=== PATIENT | male | born 1955 | race Caucasian/White ===

== ENCOUNTER 2018-04-07 23:02 | Inpatient (IN) ==
[2018-04-08] MEDS ORDERED: Naloxone 0.4 MG/ML INJ IVP PRN (03:19)
--- NOTE | 2018-04-08 03:43 | Internal Med History&Physical ---
Date of Encounter: 04/08/18 Time of Encounter: 02:50 Internal Medicine - H&P: HPI Chief complaint: unresonsive Admitted From: Hospital to Hospital Transfer Plans for Post Hospital Care: Transfer Long Term Facility History of present illness: Mr. Armenta is a 62 year old male who presents in transfer from [facility] ER. He presented there earlier this evening with complaints of unresponsiveness and aphasia. He also had some right-sided paralysis, which is all new and acute. A stroke alert was called and they performed a video conference with [facility]. Given that he has stage IV pancreatic cancer and that he was started on therapeutic dose of Lovenox for Portal Vein thrombosis, he was deemed NOT a candidate for thrombolytics. He was therefore transferred to [facility] for ongoing workup and care. Upon my assessment of the patient, he is somnolent but easily arousable. He is completely aphasic and unable to speak. He has right-sided focal paralysis of his arm and leg. He does follow commands and is able to move his left side of his body. Tongue deviates to the right. He also has a slight right-sided facial droop. I am unable to obtain history from him whatsoever. I reviewed his old records from [facility] and past oncology notes. Unfortunately, there are no family members present, and it was reported to me that his will be present later this morning. Upon review of the records from [facility] and transfer records, there is a DNR order form signed by both the ER physician and his stating patient is DNR CC. Furthermore, he just met with his hospice nurse yesterday and was being enrolled in hospice. According to limited records I could find, he has stopped going through cancer treatment due to his lack of improvement and progression of his disease. He has a history of a portal vein thrombosis and remains on therapeutic Lovenox. Despite being on Lovenox, it appears he developed an acute stroke. His troponin is elevated, but there was no reported chest pain. He did receive rectal aspirin at [facility]. Past Med Surg Social Fam HX - Past Medical History Attestation: Yes The following information was validated with the patient. Source: old records reviewed, other (Transfer records) Medical history: cancer (stage 4 pancreatic cancer), other (portal vein thrombosis) Psychiatric history: no psych history - Past Surgical History Surgical History: other - Social History Smoking Status: Former smoker Smokeless Tobacco Status: No Alcohol use: none, occasionally Drug use: none Current living situation: Home, With Family - Family History Mother History Unknown: Yes Father History Unknown: Yes Internal Medicine - H&P: Meds Ascorbic Acid [Vitamin C] 1 tab PO DAILY #30 tablet 02/25/18 [Rx] Ferrous Sulfate [Iron] 1 tab PO DAILY #30 tablet 02/25/18 [Rx] Ondansetron HCl [Zofran] 4 mg PO Q4H PRN #30 tablet 02/25/18 [Rx] Prochlorperazine Maleate [Compazine] 10 mg PO Q6H PRN #30 tablet 02/25/18 [Rx] OxyCODONE Immed Rel [Roxicodone 10 MG] 10 mg PO HS 30 Days #30 tab 03/14/18 [Rx] Docusate Sodium [Colace] 1 tab PO BID #60 capsule 03/28/18 [Rx] Morphine Sulfate SR (12 HR) [MS Contin] 1 tab PO BID 30 Days #60 tab 03/28/18 [ Rx] Polyethylene Glycol 3350 [MiraLAX] 17 gm PO BID #60 powd.pack 03/28/18 [Rx] Enoxaparin [Lovenox] 100 mg SQ Q12HR 04/07/18 [History] 3 Allergy/AdvReac Type Severity Reaction Status Date / Time cephalexin Allergy Hives Verified 04/07/18 20:14 ROS unobtainable: other (aphasia; somnolence) - Constitutional Vitals: Temp Pulse Resp BP Pulse Ox 96.8 F L 66 16 110/69 98 04/08/18 03:15 04/08/18 03:15 04/08/18 03:15 04/08/18 03:15 04/08/18 03:15 General appearance: Present: cooperative, no acute distress Exam: somnolent; arousable; follows commands; right tongue deviation and facial droop ; aphasic - Head Head exam: Present: atraumatic, normal inspection - Eye Eye exam: Present: EOMI, PERRL. Absent: scleral icterus Pupils: Present: normal accommodation - ENT ENT exam: Present: mucous membranes dry - Neck Neck exam general surgery: Present: full ROM, supple. Absent: tenderness, nuchal rigidity, thyromegaly - Respiratory Respiratory exam: Present: CTAB. Absent: chest wall tenderness, rales, respiratory distress, rhonchi, wheezes - Cardiovascular Cardiovascular exam: Present: RRR, +S1, +S2. Absent: diastolic murmur, systolic murmur - GI/Abdominal GI/Abdominal exam: Present: normal bowel sounds, soft. Absent: guarding, hepatomegaly, rebound, splenomegaly, tenderness - Extremities Exam Extremities exam: Present: full ROM, normal capillary refill, warm, radial pulses palpable and symmetrical. Absent: calf tenderness, joint swelling, pedal edema, tenderness - Back Exam Back exam: Absent: CVA tenderness (L), CVA tenderness (R) - Neurological Exam Neurological exam: Present: altered, motor sensory deficit (RUE and RLE paralysis), facial droop, speech deficit. Absent: CN II-XII intact (bryant deviates ot right and subtle right sided facial droop; aphasia) - Psychiatric Additional comments: somnolent, but arousable - Skin Skin exam: Present: dry, warm. Absent: rash Internal Med - H&P Results - Labs Labs: I reviewed the labs from [facility] and include the following: WBC 14.5 Hemoglobin 11.8 Hematocrit 36.2 Platelets 182 PT 16.9 INR 1.6 PTT 40 Sodium 131 Potassium 3.5 Chloride 97 Carbon dioxide 25 BUN 13 Creatinine 0.80 Glucose 129 Troponin 1.16 - EKG Data -: EKG Interpreted by Myself EKG shows normal: sinus rhythm - EKG Data Prior EKG available for review: no EKG comments: 04/08/18 03:50 NSR; old inferior AL - Diagnostic Studies Chest x-ray Status: image reviewed by me (negative) CT scan - head Status: image reviewed by me (negatve) - VTE Reasons for not Prescribing Prophylaxis: Not indicated-Anticoagulated or INR therapeutic - Assessment and plan (1) Stroke Current Visit: Yes Status: Acute Assessment and plan: 1. Will proceed with MRI brain, ECHO and Carotid Dopplers. 2. NPO until speech can assess patient. 3. Rectal ASA daily. 4. Continue Lovenox. 5. Pending palliative care consult and meeting with family, consider PT/OT consults and rehab referral vs Hospice care. Given his disease progression and lack of improvement, palliative care may be only option. Qualifiers: CVA mechanism: unspecified Qualified Code(s): I63.9 - Cerebral infarction, unspecified (2) Portal vein thrombosis Current Visit: Yes Status: Chronic Assessment and plan: 1. Continue Lovenox at 1mg/kg/dose. (3) Pancreatic cancer Current Visit: Yes Status: Chronic Assessment and plan: 1. Consult oncology for guidance regarding his treatments, disease state, and options -- if any aailable. 2. Conslt Palliative Care to assist with goals of care after HEM/ONC gives recommendations. 3. Patient may benefit from Hospice. Qualifiers: Pancreatic malignancy location: body of pancreas Qualified Code(s): C25.1 - Malignant neoplasm of body of pancreas (4) DVT prophylaxis Current Visit: Yes Status: Acute Assessment and plan: 1. Continue home Lovvenox at 1mg/kg/dose.
[2018-04-08] MEDS ORDERED: *HR* Morphine 2 MG/ML SYRINGE IVP PRN (03:59)
[2018-04-08] MEDS: 0.9 % Sodium Chloride w KCl 20 MEQ/1,000 ML MLS IVC SCH ×2 (04:32→21:24)
[2018-04-08 05:17] LABS: Basophils # 0.1 K/mcL (0.0-0.2); Basophils % 0.5 %; Eosinophils # 0.4 K/mcL (0.0-0.6); Eosinophils % 3.7 %; Hemoglobin 10.6 g/dL (12.9-16.9); Immature Granulocytes % 0.9 % (0-4); Lymphocytes % 18.2 %; Mean Corpuscular HGB Conc 32.1 g/dL (31.6-35.5); Mean Corpuscular Hemoglobin 25.7 pg (28.0-33.3); Mean Corpuscular Volume 79.9 fL (83.0-100.0); Mean Platelet Volume 10.5 fL (9.4-12.4); Monocytes # 1.3 K/mcL (0.0-1.3); Monocytes % 11.3 %; Neutrophils # 7.3 K/mcL (1.6-8.9); Platelet Count 152 K/mcL (140-400); Red Blood Count 4.13 M/mcL (4.19-5.50); Red Cell Distribution Width 17.9 % (11.5-14.5); Segmented Neutrophils % 65.4 %
[2018-04-08 05:22] LABS: INR 1.6; Prothrombin Time 17.6 Seconds (9.4-12.1)
[2018-04-08 05:25] LABS: Activated Partial Thrombo Time 47.3 Seconds (26.0-36.0)
[2018-04-08 05:36] LABS: Alanine Aminotransferase 21 Units/L (7-52); Albumin 3.3 g/dL (3.5-5.7); Albumin/Globulin Ratio 1.1 (1.1-2.2); Alkaline Phosphatase 337 Units/L (34-104); Aspartate Amino Transferase 32 Units/L (13-39); BUN/Creatinine Ratio 18 (6-26); Bilirubin,Total 1.2 mg/dL (0.3-1.0); Blood Urea Nitrogen 13 mg/dL (8-23); Calcium 8.6 mg/dL (8.6-10.3); Carbon Dioxide 25 mEq/L (23-29); Chloride 100 mEq/L (98-107); Chol/HDL Ratio 10.5 (0-4.9); Cholesterol 137 mg/dL (< 200); Globulin 2.9 g/dL (2.4-3.5); Glucose 116 mg/dL (70-105); HDL Cholesterol 13 mg/dL (40-59); LDL Cholesterol,Calculated 94 mg/dL (0-99); Magnesium 2.2 mg/dL (1.6-2.6); Osmolality,Calculated 277 (280-300); Potassium 3.9 mEq/L (3.5-5.1); Sodium 133 mEq/L (136-145); Total Protein 6.2 g/dL (6.4-8.9); Triglycerides 150 mg/dL (< 150); eGFR For African Americans > 60 (> 60); eGFR For Non-African Americans > 60 (> 60)
[2018-04-08] MEDS ORDERED: *HR* Enoxaparin 100 MG/ML SYRINGE SQ SCH (06:00)
--- NOTE | 2018-04-08 10:30 | Palliative - Consult Note ---
Date of Encounter: 04/08/18 Time of Encounter: 09:50 - Assessment and Plan (1) Goals of care, counseling/discussion Current Visit: Yes Status: Acute Assessment and plan: he is DNR comfort care. I think given his overall edition this is appropriate, but the patient has stage IV pancreatic cancer. Also care family is not present. Patient is not responsive to verbal. Therefore unable to establish goals of care at this time. However believe that this stroke is probably directly related to the hospice diagnosis of pancreatic cancer. She did rescind hospice before coming to the hospital but hospice is available to him if no further therapy is desired. If the patient does desire to have any kind of rehabilitation hospice would be available after the rehabilitation. (2) Pancreatic cancer Current Visit: Yes Status: Chronic Assessment and plan: Stage IV and the patient has decided against any further treatment. Patient was being admitted to hospice with this diagnosis. Of note, the patient did rescind hospice but He will be eligible for hospice after the workup of the stroke is complete. Qualifiers: Pancreatic malignancy location: body of pancreas Qualified Code(s): C25.1 - Malignant neoplasm of body of pancreas (3) Stroke Current Visit: No Status: Acute Assessment and plan: CVA affecting left side ahead with right-sided hemiparesis by history. I believe that the patient's stroke is probably directly related to his diagnosis of pancreatic cancer. Will follow and await the end of the workup. Hopefully meet with family. Qualifiers: CVA mechanism: embolism Precerebral and cerebral artery: unspecified precerebral artery Qualified Code(s): I63.10 - Cerebral infarction due to embolism of unspecified precerebral artery Palliative-CN HPI - Data of Consult Patient: new to practice Requesting Physician: Carlos Dillard MD Primary Care Provider: Hyun Perez CNP - Consult Narrative Palliative Care/Comfort Measures: Palliative care History of present illness: Mr. Armenta is a 62 year old male Patient with a history of metastatic pancreatic cancer. Been started on Lanoxin for portal vein thrombosis suffered a CVA very early this morning and was felt not to be a candidate for thrombolytic lysis. Senna with new complaints of unresponsiveness aphasia and right-sided paralysis. She was transferred to [facility] for further evaluation. Had decided on hospice care for his cancer, however patient and family decided to rescind hospice for the purposes of getting the worked up. She is currently not responsive to voice is in no acute distress. There is no family present. CC: Carlos Dillard MD CVA Past Med Surg Social Fam HX - Past Medical History Medical history: cancer (stage 4 pancreatic cancer), other (portal vein thrombosis) Psychiatric history: no psych history - Past Surgical History Surgical History: other - Social History Smoking Status: Former smoker Smokeless Tobacco Status: No Alcohol use: none, occasionally Drug use: none - Family History Mother History Unknown: Yes Father History Unknown: Yes Medications and Allergies Ascorbic Acid [Vitamin C] 1 tab PO DAILY #30 tablet 02/25/18 [Rx] Ferrous Sulfate [Iron] 1 tab PO DAILY #30 tablet 02/25/18 [Rx] Ondansetron HCl [Zofran] 4 mg PO Q4H PRN #30 tablet 02/25/18 [Rx] Prochlorperazine Maleate [Compazine] 10 mg PO Q6H PRN #30 tablet 02/25/18 [Rx] OxyCODONE Immed Rel [Roxicodone 10 MG] 10 mg PO HS 30 Days #30 tab 03/14/18 [Rx] Docusate Sodium [Colace] 1 tab PO BID #60 capsule 03/28/18 [Rx] Morphine Sulfate SR (12 HR) [MS Contin] 1 tab PO BID 30 Days #60 tab 03/28/18 [ Rx] Polyethylene Glycol 3350 [MiraLAX] 17 gm PO BID #60 powd.pack 03/28/18 [Rx] Enoxaparin [Lovenox] 100 mg SQ Q12HR 04/07/18 [History] Dronabinol [Marinol] 5 mg PO BID 04/08/18 [History] 3 Allergy/AdvReac Type Severity Reaction Status Date / Time cephalexin Allergy Hives Verified 04/07/18 20:14 ROS unobtainable: due to mental status Palliative Care-Exam - Constitutional Vitals: Temp Pulse Resp BP Pulse Ox 97.1 F L 65 18 127/77 100 04/08/18 07:32 04/08/18 07:32 04/08/18 07:32 04/08/18 07:32 04/08/18 07:32 General appearance: Present: no acute distress (The patient is unresponsive to voice and does not follow commands) - Head Head Exam: Present: atraumatic, normal inspection - Eye Eye exam: Present: normal appearance - ENT ENT exam: Present: mucous membranes moist - Respiratory Respiratory exam: Present: decreased breath sounds (There is a MediPort on the right side of the chest) - Cardiovascular Cardiovascular exam: Present: RRR - GI/Abdominal Exam GI/Abdominal exam: Present: normal bowel sounds, soft. Absent: tenderness - Extremities Exam Extremities exam: Absent: pedal edema, tenderness - Neurological Exam Neurological exam: Present: altered (Nonresponsive to verbal. Do understand from the history of present illness the patient does have right-sided hemiparesis. Patient was following commands earlier this morning but is not currently.) - Psychiatric Psychiatric exam: Absent: agitated, anxious - Skin Skin exam: Present: dry, warm Internal Medicine - CN: Reslt - Labs CBC & Chem 7: 04/08/18 04:24 04/08/18 04:24 Labs: Short CBC 04/08/18 Range/Units 04:24 WBC 11.2 H (4.3-11.1) K/mcL Hgb 10.6 L (12.9-16.9) g/dL Hct 33.0 L (37.5-50.1) % Plt Count 152 (140-400) K/mcL Neutrophils # 7.3 (1.6-8.9) K/mcL BMP 04/08/18 04:24 Sodium 133 L Potassium 3.9 Chloride 100 Carbon Dioxide 25 BUN 13 Creatinine 0.71 Glucose 116 H Calcium 8.6 Cardiac Enzymes 04/08/18 Range/Units 04:24 Troponin I 0.71 H* (< 0.04) ng/mL Liver Function 04/08/18 Range/Units 04:24 Total Bilirubin 1.2 H (0.3-1.0) mg/dL AST 32 (13-39) Units/L ALT 21 (7-52) Units/L Alkaline Phosphatase 337 H (34-104) Units/L Albumin 3.3 L (3.5-5.7) g/dL - ABG Interpretation ABG results: PT/INR, D-dimer PT 17.6 Seconds (9.4-12.1) H 04/08/18 04:24 Consult Discharge Plan - Plan Referrals: Hyun Perez, [employer] [Primary Care Provider] - Palliative Quality Palliative Quality: Screen for Code Status: Yes, Screen for Goals of Care: Yes, Screen for Pain: Yes, If Pain Regimen Started, Initiate Bowel Regimen: NA, Screen for Nausea/Vomitting: Yes Code Status: 04/08/18 03:19 Resuscitation Status: Active [RES] Routine Comment: Resuscitation Status: DNR-Comfort Care
[2018-04-08] MEDS ORDERED: Glycopyrrolate 0.2 MG/ML VIAL IVP PRN (15:17)
[2018-04-08] MEDS ORDERED: *HR* LORazepam Oral Conc 2 MG/ML SL PRN (15:17)
--- NOTE | 2018-04-08 15:19 | Internal Med Progress Note ---
Date of Encounter: 04/08/18 Time of Encounter: 15:13 - Assessment and plan (1) Stroke Current Visit: No Status: Acute Assessment and plan: Large left MCA territory stroke, multiple other embolic strokes MRI of the brain showed:1. Large acute infarct involving the left MCA territory with mild regional mass effect contributing to perhaps 2 mm of [id number] midline shift. There is no evidence of herniation. 2. Additional smaller scattered acute infarcts within the cerebellar and cerebral hemispheres bilaterally. These may be embolic in nature. ECHO and Carotid Dopplers were performed already, final report pending Discontinue Lovenox as it was not able to prevent any emboli and will probably prolong suffering Family does not want any aggressive treatment or testing, they preferred neurology not to be called and preferred to continue palliative care/hospice only . Palliative care consulted Continue oxycodone, Robinul, scopolamine, Ativan as needed Full comfort measures, DNR CC Qualifiers: CVA mechanism: embolism Precerebral and cerebral artery: unspecified precerebral artery Qualified Code(s): I63.10 - Cerebral infarction due to embolism of unspecified precerebral artery (2) Pancreatic cancer Current Visit: Yes Status: Chronic Assessment and plan: Stage IV pancreatic cancer/adenocarcinoma Palliative Care to assist with goals of care after HEM/ONC gives recommendations. Hospice. Qualifiers: Pancreatic malignancy location: body of pancreas Qualified Code(s): C25.1 - Malignant neoplasm of body of pancreas (3) Portal vein thrombosis Current Visit: Yes Status: Chronic Assessment and plan: Comfort care only, no Lovenox - Time Spent With Patient Total time spent is greater than 50% in coordination of care (as documented) at patient's floor/unit and/or counseling patient: - Subjective Interval history: non verbal , appears to be in no distress - Constitutional Vitals: Temp Pulse Resp BP Pulse Ox 97.8 F 81 18 125/79 99 04/08/18 10:57 04/08/18 10:57 04/08/18 10:57 04/08/18 10:57 04/08/18 10:57 General appearance: Present: cooperative, A&O X 1, no acute distress - Head Head exam: Present: atraumatic, normocephalic - Eye Eye exam: Present: PERRL, conjuntiva pink, sclera anicteric Pupils: Present: PERRL - Neck Neck exam general surgery: Present: supple, trachea midline. Absent: lymphadenopathy - Respiratory Respiratory exam: Present: CTAB. Absent: accessory muscle use, rales, rhonchi, wheezes - Cardiovascular Cardiovascular exam: Present: RRR, +S1, +S2. Absent: diastolic murmur, gallop, rubs, systolic murmur - GI/Abdominal GI/Abdominal exam: Present: normal bowel sounds, soft, no peritoneal signs. Absent: distended, tenderness - Extremities Exam Extremities exam: Present: warm, radial pulses palpable and symmetrical. Absent : calf tenderness, cyanotic, pedal edema - Neurological Exam Neurological exam: Absent: CN II-XII intact, oriented X3, no focal deficits, pronater drift, facial droop, speech deficit Additional comments: Right hemiparesis, aphasia - Skin Skin exam: Present: dry, intact Internal Medicine: Result - Labs CBC & Chem 7: 04/08/18 04:24 04/08/18 04:24 Labs: Short CBC 04/08/18 Range/Units 04:24 WBC 11.2 H (4.3-11.1) K/mcL Hgb 10.6 L (12.9-16.9) g/dL Hct 33.0 L (37.5-50.1) % Plt Count 152 (140-400) K/mcL Neutrophils # 7.3 (1.6-8.9) K/mcL BMP 04/08/18 04:24 Sodium 133 L Potassium 3.9 Chloride 100 Carbon Dioxide 25 BUN 13 Creatinine 0.71 Glucose 116 H Calcium 8.6 Cardiac Enzymes 04/08/18 04/08/18 Range/Units 04:24 09:56 Troponin I 0.71 H* 0.65 H* (< 0.04) ng/mL Liver Function 04/08/18 Range/Units 04:24 Total Bilirubin 1.2 H (0.3-1.0) mg/dL AST 32 (13-39) Units/L ALT 21 (7-52) Units/L Alkaline Phosphatase 337 H (34-104) Units/L Albumin 3.3 L (3.5-5.7) g/dL - ABG Interpretation ABG results: PT/INR, D-dimer PT 17.6 Seconds (9.4-12.1) H 04/08/18 04:24 - Impressions Impressions Brain MRI 04/08/18 03:19 IMPRESSION: 1. Large acute infarct involving the left MCA territory with mild regional mass effect contributing to perhaps 2 mm of [id number] midline shift. There is no evidence of herniation. 2. Additional smaller scattered acute infarcts within the cerebellar and cerebral hemispheres bilaterally. These may be embolic in nature. 3. Mild global parenchymal volume loss with chronic microvascular ischemic change. 4. No evidence to suggest intracranial metastatic disease. These results were sent to the [facility] ([facility] on 04/08/2018 at 2:34 pm to be communicated to the referring/covering health care provider/office. D/ / Favian Sethi MD / Favian Sethi MD Interpreting Provider: Favian Sethi MD - VTE Reasons for not Prescribing Prophylaxis: Not indicated-Anticoagulated or INR therapeutic Consult Discharge Plan - Plan Referrals: Hyun Perez CNP [Primary Care Provider] -
[2018-04-08] MEDS ORDERED: Scopolamine Patch 1.5 MG PATCH.TD72 TD SCH (15:30)
--- NOTE | 2018-04-08 18:58 | Event Note ---
Date of Encounter: 04/08/18 Time of Encounter: 18:20 We were consulted on Mr. Armenta today. He is being treated for metastatic pancreatic adenocarcinoma by Dr. Montenegro. The patient has had a life altering embolic CVA. He has elected to proceed with home hospice with planned discharge for tomorrow tentatively. Upon arrival to the room, family was at bedside. They are also on speaker phone with her family members. He had no concerns or issues and is content with this decision. All questions answered to best my ability. We agree with discharge to hospice.
[2018-04-08] MEDS: OXYCODONE Oral CONC 10 MG/0.5 ML ORAL.SYG SL PRN (21:23)
[2018-04-09] MEDS: OXYCODONE Oral CONC 10 MG/0.5 ML ORAL.SYG SL PRN ×2 (02:26→12:46)
--- NOTE | 2018-04-09 08:43 | Discharge Summary ---
- NOTES TO OUTPATIENT PROVIDER Notes to Outpatient Provider: Hospice services, continue Ativan and oxycodone as needed. Scopolamine patch to reduce secretions Date of Encounter: 04/09/18 Time of Encounter: 08:41 - Discharge Diagnosis (1) Stroke Priority: Primary Status: Acute Assessment and Plan: Large left MCA territory acute CVA, multiple other embolic CVAs Qualifiers: CVA mechanism: embolism Precerebral and cerebral artery: unspecified precerebral artery Qualified Code(s): I63.10 - Cerebral infarction due to embolism of unspecified precerebral artery (2) Pancreatic cancer Priority: Secondary Status: Chronic Assessment and Plan: Stage IV pancreatic cancer/adenocarcinoma Hospice. Qualifiers: Pancreatic malignancy location: body of pancreas Qualified Code(s): C25.1 - Malignant neoplasm of body of pancreas (3) Portal vein thrombosis Priority: Secondary Status: Chronic Assessment and Plan: Likely related to pancreatic cancer. Comfort care only (4) Metastatic cancer to liver Priority: Secondary Status: Acute (5) Pancreatic cancer metastasized to intra-abdominal lymph node Priority: Secondary Status: Acute Hospital course: Mr. 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 He presented there with complaints of unresponsiveness and aphasia. He also had right- sided paralysis, which is all new and acute. A stroke alert was called and they performed a video conference with [facility]. Given that he has stage IV pancreatic cancer and that he was started on therapeutic dose of Lovenox for Portal Vein thrombosis, he was deemed NOT a candidate for thrombolytics. He was therefore transferred to [facility] for ongoing workup and care. He was completely aphasic and unable to speak. He developed right-sided focal paralysis of his arm and leg. He did follow simple commands and was able to move his left side of his body. Tongue deviated to the right. He also had a right-sided facial droop. Upon review of the records from [place] and transfer records, there had a DNR order form signed by both the ER physician and his stating patient is DNR CC. Furthermore, he just met with his hospice nurse . Prior to admission and was being enrolled in hospice. Despite being on Lovenox, it appears he developed an acute stroke. His troponin was elevated at 0.71 and trended down to 0.65, but there was no reported chest pain. He did receive rectal aspirin at [place]. MRI of the brain showed:1. Large acute infarct involving the left MCA territory with mild regional mass effect contributing to perhaps 2 mm of [id number] midline shift. There is no evidence of herniation. 2. Additional smaller scattered acute infarcts within the cerebellar and cerebral hemispheres bilaterally. These may be embolic in nature. ECHO showed ejection fraction of 65%, mild diastolic dysfunction and no evidence of thrombus. Carotid Dopplers was performed already, final report pending Discontinued Lovenox as it was not able to prevent any emboli and will probably prolong suffering. Family does not want any aggressive treatment or testing, they preferred neurology not to be called and preferred to continue palliative care/hospice only Palliative care was consulted Continue oxycodone, Robinul, scopolamine, Ativan as needed Full comfort measures, DNR CC - Time Spent with Patient Total time spent providing and/or coordinating discharge services: Greater than 30 minutes (40 min) - Discharge Medications Prescriptions: LORazepam Oral Conc [Ativan Oral Conc] 1 mg PO Q2HR PRN 4 Days #15 mls PRN Reason: Anxiety OXYCODONE Oral CONC [Oxycodone Oral Conc] 5 mg PO Q2H PRN 4 Days #15 ml PRN Reason: Pain Scopolamine Patch [Transderm-Scop] 1.5 mg TD Q72H #5 patch.td72 Home Medications: Ascorbic Acid [Vitamin C] 1 tab PO DAILY #30 tablet 02/25/18 [Rx] Ondansetron HCl [Zofran] 4 mg PO Q4H PRN #30 tablet 02/25/18 [Rx] Prochlorperazine Maleate [Compazine] 10 mg PO Q6H PRN #30 tablet 02/25/18 [Rx] OxyCODONE Immed Rel [Roxicodone 10 MG] 10 mg PO HS 30 Days #30 tab 03/14/18 [Rx] Morphine Sulfate SR (12 HR) [MS Contin] 1 tab PO BID 30 Days #60 tab 03/28/18 [ Rx] LORazepam Oral Conc [Ativan Oral Conc] 1 mg PO Q2HR PRN 4 Days #15 mls 04/08/18 [Rx] OXYCODONE Oral CONC [Oxycodone Oral Conc] 5 mg PO Q2H PRN 4 Days #15 ml [Rx] Scopolamine Patch [Transderm-Scop] 1.5 mg TD Q72H #5 patch.td72 04/09/18 [Rx] Allergies/Adverse Reactions: 3 Allergy/AdvReac Type Severity Reaction Status Date / Time cephalexin Allergy Hives Verified 04/07/18 20:14 Date of admission: 04/08/18 02:19 Primary care physician: Hyun Perez CNP Consults: 04/08/18 03:19 Consult to Oncology [CONS] Routine Consulting Provider: [facility] Reason for Consult: pancreatic cancer Call Completed: No Consult to Palliative Care [CONS] Routine Comment: Consulting Provider: [facility] [place] Reason for Consult: pancreatic cancer; stroke; previously enrolled in Hospice Call Completed: No - Constitutional Vitals: Temp Pulse Resp BP Pulse Ox 99.6 F 64 16 127/74 98 04/09/18 06:57 04/09/18 06:57 04/09/18 06:57 04/09/18 06:57 04/09/18 06:57 General appearance: Present: cooperative, A&O X 1, no acute distress Exam: - Head Head exam: Present: atraumatic, normocephalic - Eye Eye exam: Present: PERRL, conjuntiva pink, sclera anicteric Pupils: Present: PERRL - Neck Neck exam general surgery: Present: supple, trachea midline. Absent: lymphadenopathy - Respiratory Respiratory exam: Present: CTAB. Absent: accessory muscle use, rales, rhonchi, wheezes - Cardiovascular Cardiovascular exam: Present: RRR, +S1, +S2. Absent: diastolic murmur, gallop, rubs, systolic murmur - GI/Abdominal GI/Abdominal exam: Present: normal bowel sounds, soft, no peritoneal signs. Absent: distended, tenderness - Extremities Exam Extremities exam: Present: warm, radial pulses palpable and symmetrical. Absent : calf tenderness, cyanotic, pedal edema - Neurological Exam Neurological exam: Absent: CN II-XII intact, oriented X3, no focal deficits, pronater drift, facial droop, speech deficit Additional comments: Right hemiparesis, aphasia - Skin Skin exam: Present: dry, intact - Patient Status Disposition: Hospice - Home Condition: Critical Overall status at discharge: patient is not back to baseline - Discharge Instructions Follow Up With: Hyun Perez CNP [Primary Care Provider] - - Diet and Activity Diet: regular diet - VTE Reasons for not Prescribing Prophylaxis: Not indicated-Anticoagulated or INR therapeutic
--- NOTE | 2018-04-09 08:56 | Physician Discharge Referral ---
Home Health/Hosp Referral Info Transfer to: Hospice Provider in Charge Post Discharge: [facility] - Diagnosis (1) Stroke Status: Acute (2) Pancreatic cancer Status: Chronic (3) Portal vein thrombosis Status: Chronic (4) Metastatic cancer to liver Status: Acute (5) Pancreatic cancer metastasized to intra-abdominal lymph node Status: Acute - Respiratory Orders Smoking Cessation: Smoking cessation has been advised. For more information, call the [place] Tobacco Quit Line at 0-239-BPJM-NOW. - Diet/Nutrition Diet/Nutrition Orders: Regular - Services Needed Following services are medically necessary services: Nursing, Home Health Aide Home Care Orders: Hospice services, continue Ativan and oxycodone as needed. Scopolamine patch to reduce secretions - Transfer Medications Prescriptions: LORazepam Oral Conc [Ativan Oral Conc] 1 mg PO Q2HR PRN 4 Days #15 mls PRN Reason: Anxiety OXYCODONE Oral CONC [Oxycodone Oral Conc] 5 mg PO Q2H PRN 4 Days #15 ml PRN Reason: Pain Scopolamine Patch [Transderm-Scop] 1.5 mg TD Q72H #5 patch.td72 Home Medications: Ascorbic Acid [Vitamin C] 1 tab PO DAILY #30 tablet 02/25/18 [Rx] Ondansetron HCl [Zofran] 4 mg PO Q4H PRN #30 tablet 02/25/18 [Rx] Prochlorperazine Maleate [Compazine] 10 mg PO Q6H PRN #30 tablet 02/25/18 [Rx] OxyCODONE Immed Rel [Roxicodone 10 MG] 10 mg PO HS 30 Days #30 tab 03/14/18 [Rx] Morphine Sulfate SR (12 HR) [MS Contin] 1 tab PO BID 30 Days #60 tab 03/28/18 [ Rx] LORazepam Oral Conc [Ativan Oral Conc] 1 mg PO Q2HR PRN 4 Days #15 mls 04/08/18 [Rx] OXYCODONE Oral CONC [Oxycodone Oral Conc] 5 mg PO Q2H PRN 4 Days #15 ml [Rx] Scopolamine Patch [Transderm-Scop] 1.5 mg TD Q72H #5 patch.td72 04/09/18 [Rx] Allergies/Adverse Reactions: 3 Allergy/AdvReac Type Severity Reaction Status Date / Time cephalexin Allergy Hives Verified 04/07/18 20:14 Certification: Further, I certify that my clinical findings support that this patient is homebound (i.e. absences from home require considerable and taxing effort and are for medical reasons or jewish services or infrequently or short duration when for other reasons) because: Homebound Reason: Patient requires assistance of a person or device to safely leave home Attestation: My signature below is to certify that this patient is under my care and that I, or nurse practitioner, or a physician's dental assistant working with me, has a face-to -face encounter with this patient.
--- NOTE | 2018-04-09 09:40 | Palliative Progress Note ---
Date of Encounter: 04/09/18 Time of Encounter: 09:20 - Assessment and plan (1) Stroke Current Visit: No Status: Acute Assessment and plan: No further anticoagulant treatment; home with [facility] with DNR CC code status. Qualifiers: CVA mechanism: embolism Precerebral and cerebral artery: unspecified precerebral artery Qualified Code(s): I63.10 - Cerebral infarction due to embolism of unspecified precerebral artery (2) Goals of care, counseling/discussion Current Visit: Yes Status: Acute Assessment and plan: Spoke with family yesterday evening and verbalized understanding of prognosis with wishes to return home with Hospice. Nurse Marino aware discharge order has been placed and need to call [facility] when patient's family is present and ready for discharge home; verbalized understanding.Alexis FERRARI worked with [facility] and was told to have primary nurse on unit call [facility] salesperson surgical appliances nurse when ready for discharge today. Nurse Marino informed repairer typewriter that Dr. Dahl wrote for new order for Scopalamine patch and wrote for Prescription for discharge and receive recommendations from [facility] nurse regarding filling Scopalamine Patch. Informed Nurse Marino if any continued needs notify [facility] and this repairer typewriter is also available salesperson surgical appliances if needed. (3) Pancreatic cancer metastasized to intra-abdominal lymph node Current Visit: No Status: Acute Assessment and plan: Patient's family wishes to return patient home with [facility]. - Time Spent With Patient Total time spent is greater than 50% in coordination of care (as documented) at patient's floor/unit and/or counseling patient: - Subjective Interval history: Patient laying in bed resting quietly on visit. No family present at bedside; nurse Marino reports family went home to take shower and then return. Verified patient's discharge plan remains to return home with [facility]. Prescriptions written, filled, and locked up on unit. Patient was alert, non- responsive, and aphasic. No non-verbal signs of pain or anxiety noted. - Constitutional Vitals: Abnormal lab results WBC 11.2 K/mcL (4.3-11.1) H 04/08/18 04:24 RBC 4.13 M/mcL (4.19-5.50) L 04/08/18 04:24 Hgb 10.6 g/dL (12.9-16.9) L 04/08/18 04:24 Hct 33.0 % (37.5-50.1) L 04/08/18 04:24 MCV 79.9 fL (83.0-100.0) L 04/08/18 04:24 MCH 25.7 pg (28.0-33.3) L 04/08/18 04:24 RDW 17.9 % (11.5-14.5) H 04/08/18 04:24 PT 17.6 Seconds (9.4-12.1) H 04/08/18 04:24 APTT 47.3 Seconds (26.0-36.0) H 04/08/18 04:24 Sodium 133 mEq/L (136-145) L 04/08/18 04:24 Glucose 116 mg/dL (70-105) H 04/08/18 04:24 Calculated Osmolality 277 (280-300) L 04/08/18 04:24 Total Bilirubin 1.2 mg/dL (0.3-1.0) H 04/08/18 04:24 Alkaline Phosphatase 337 Units/L (34-104) H 04/08/18 04:24 Troponin I 0.65 ng/mL (< 0.04) H* 04/08/18 09:56 Serum Total Protein 6.2 g/dL (6.4-8.9) L 04/08/18 04:24 Albumin 3.3 g/dL (3.5-5.7) L 04/08/18 04:24 Triglycerides 150 mg/dL (< 150) H 04/08/18 04:24 HDL Cholesterol 13 mg/dL (40-59) L 04/08/18 04:24 Cholesterol/HDL Ratio 10.5 (0-4.9) H 04/08/18 04:24 General appearance: Present: no acute distress - Head Head exam: Present: atraumatic, normocephalic - Eye Eye exam: Present: normal appearance. Absent: nystagmus, periorbital swelling, periorbital tenderness - ENT ENT exam: Present: mucous membranes dry, normal external ear exam - Neck Neck exam: Present: normal inspection - Respiratory Respiratory exam: Present: CTAB. Absent: respiratory distress - Cardiovascular Cardiovascular exam: Present: +S1, +S2 - GI/Abdominal GI/Abdominal exam: Present: hypoactive bowel sounds, soft. Absent: tenderness - Rectal Rectal exam: Present: deferred - Extremities Exam Extremities exam: Present: normal inspection. Absent: pedal edema - Neurological Exam Neurological exam: Present: alert, altered. Absent: strengths equal and symetr throughout - Psychiatric Psychiatric exam: Present: flat affect - Skin Skin exam: Present: dry, warm Palliative Quality Palliative Quality: Screen for Code Status: Yes, Screen for Goals of Care: Yes, Screen for Pain: Yes, If Pain Regimen Started, Initiate Bowel Regimen: NA, Screen for Nausea/Vomitting: Yes Code Status: 04/08/18 03:19 Resuscitation Status: Active [RES] Routine Comment: Resuscitation Status: DNR-Comfort Care - Labs CBC & Chem 7: 04/08/18 04:24 04/08/18 04:24 Labs: Laboratory Results - last 24 hr 04/08/18 04/08/18 04/08/18 07:36 09:56 17:54 POC Glucose 97 89 Troponin I 0.65 H* 04/08/18 04/09/18 23:23 05:42 POC Glucose 121 H 99 Troponin I - Impressions Impressions Brain MRI 04/08/18 03:19 IMPRESSION: 1. Large acute infarct involving the left MCA territory with mild regional mass effect contributing to perhaps 2 mm of [id number]-[id number] midline shift. There is no evidence of herniation. 2. Additional smaller scattered acute infarcts within the cerebellar and cerebral hemispheres bilaterally. These may be embolic in nature. 3. Mild global parenchymal volume loss with chronic microvascular ischemic change. 4. No evidence to suggest intracranial metastatic disease. These results were sent to the [facility] ([facility]) on 04/08/2018 at 2:34 pm to be communicated to the referring/covering health care provider/office. D/ / Favian Sethi MD / Favian Sethi MD Interpreting Provider: Favian Sethi MD Echocardiogram 04/08/18 03:19 Impressions: LVEF 65%. Normal LV chamber size, wall thickness and function. Mild left ventricular diastolic dysfunction. Normal right ventricular structure and function. No evidence of pulmonary hypertension. No significant valvular dysfunction. No evidence of PFO with agitated saline contrast. Left Ventricular Wall Motion: Rest Echo Findings All wall segments showed normal motion. Findings: Study Quality * Technically adequate exam. ECG Findings * Normal sinus rhythm. Left Ventricle * LVEF 65%. * Normal LV chamber size, wall thickness and function. * Mild left ventricular diastolic dysfunction. Right Ventricle * Normal right ventricular structure and function. Left Atrium * Mildly dilated left atrium. Right Atrium * Normal right atrial size. Aortic Valve * Aortic valve not well visualized. * No aortic regurgitation. * No aortic stenosis. Mitral Valve * Normal mitral valve structure and function. * No mitral regurgitation. * No mitral stenosis. Tricuspid Valve * Normal tricuspid valve structure and function. * Trace tricuspid regurgitation. * No evidence of pulmonary hypertension. Pulmonic Valve * Pulmonic valve is not well visualized. * No pulmonic regurgitation. Aorta * Normally sized aortic root. Pericardium * Trivial pericardial effusion. IVC * Normal IVC dimensions and inspiratory collapse. Pulmonary Artery * Normal visualized portions of the main pulmonary artery. Interatrial Septum * No evidence of PFO with agitated saline contrast. - ABG Interpretation ABG results: PT/INR, D-dimer PT 17.6 Seconds (9.4-12.1) H 04/08/18 04:24 Consult Discharge Plan - Plan Referrals: Hyun Perez, AUDITING CODER [Primary Care Provider] - Prescriptions: LORazepam Oral Conc [Ativan Oral Conc] 1 mg PO Q2HR PRN 4 Days #15 mls PRN Reason: Anxiety OXYCODONE Oral CONC [Oxycodone Oral Conc] 5 mg PO Q2H PRN 4 Days #15 ml PRN Reason: Pain Scopolamine Patch [Transderm-Scop] 1.5 mg TD Q72H #5 patch.td72
[2018-04-09 11:09] VITALS: BP 125/70
--- NOTE | 2018-04-11 05:53 | Electrocardiograph Report ---
[address] [place] [address] Test Date: 2018-04-08 Pat Name: Flaquito Armenta Department: 111 Room: 2NE24 Gender: M Contact Centre Supervisor: [id number] : 1955 Requested By: Anthony Irvin MD Order Number: [id number] Reading MD: Lobito Fox Measurements Intervals [place] Rate: 64 P: 30 [place]: 187 QRS: -12 QRSD: 91 T: 3 QT: 396 QTc: 406 Interpretive Statements SINUS RHYTHM LOW QRS VOLTAGE IN PRECORDIAL LEADS INFERIOR MYOCARDIAL INFARCTION, OF INDETERMINATE AGE Electronically Signed On 04-11-2018 5:52:32 EDT by Lobito Fox
== END 2018-04-09 15:04 | disposition hospice, home (50) | DRG 64 ==
LOC: 2NENU 04-08 02:19
PROVIDERS: ADMIT Pediatrics; ATTEND Internal Medicine

== ENCOUNTER 2018-04-11 22:11 | Observation (INO) ==
[2018-04-12 00:11] VITALS: BP 116/73
[2018-04-12] MEDS ORDERED: *HR* LORazepam 2 MG/ML VIAL IVP ONE (00:43)
[2018-04-12] MEDS ORDERED: Atropine Sulfate 1% 40 DROP/2 ML BOTTLE SL PRN (01:07)
[2018-04-12] MEDS ORDERED: Naloxone 0.4 MG/ML INJ IVP PRN (01:07)
[2018-04-12] MEDS ORDERED: *HR* LORazepam 2 MG/ML VIAL IVP PRN (01:07)
[2018-04-12] MEDS ORDERED: *HR* Morphine 2 MG/ML SYRINGE IVP PRN (01:07)
--- NOTE | 2018-04-12 01:38 | Internal Med History&Physical ---
Date of Encounter: 04/12/18 Time of Encounter: 00:20 Internal Medicine - H&P: HPI Chief complaint: transfer from [place] Admitted From: Hospital to Hospital Transfer Plans for Post Hospital Care: at Medical Facility History of present illness: Mr. Armenta is a 62 year old male who presents in transfer from [facility] ER for palliative care and end-of-life care. Patient was enrolled in hospice and is considered terminal for concerns of his metastatic pancreatic cancer and portal vein thrombosis. Patient arrives here per family request for ongoing inpatient care for his remaining life. Upon arrival to the hospital, I was called to bedside by his nurse. Patient is unresponsive to pain and verbal stimuli. He is breathing and has some secretions. He has a pulse and feels warm. I cannot obtain any history from patient and there are no family members present. After I assessed patient, I tried contacting family and was able to reach his by telephone. She arrived at the hospital and I met with her a few minutes shortly thereafter. I discussed with her her wishes, his wishes, and plan of care. She voiced to me that she was unable to care for him at home and he was unable to take the medicine administered by her. She wishes end-of-life and comfort care measures only. She does not wish to have any labs or vitals drawn. She wishes for patient to have comfort care measures only. I therefore will order pain and anxiety medications and supportive measures. If he survives the morning, we will consult palliative care for assistance in ongoing inpatient care management. However, I do not anticipate he will survive the next 24 hours. I discussed with patient's and she voiced understanding. She is very appreciative of the care and all she wants is comfort measures for the patient. Past Med Surg Social Fam HX - Past Medical History Source: old records reviewed, obtained from family Medical history: cancer, other Psychiatric history: no psych history - Past Surgical History Surgical History: other - Social History Smoking Status: Former smoker Smokeless Tobacco Status: No Alcohol use: none, occasionally Drug use: none Current living situation: Home, With Family Activity Level: Bed bound Internal Medicine - H&P: Meds Ascorbic Acid [Vitamin C] 1 tab PO DAILY #30 tablet 02/25/18 [Rx] Ondansetron HCl [Zofran] 4 mg PO Q4H PRN #30 tablet 02/25/18 [Rx] Prochlorperazine Maleate [Compazine] 10 mg PO Q6H PRN #30 tablet 02/25/18 [Rx] OxyCODONE Immed Rel [Roxicodone 10 MG] 10 mg PO HS 30 Days #30 tab 03/14/18 [Rx] Morphine Sulfate SR (12 HR) [MS Contin] 1 tab PO BID 30 Days #60 tab 03/28/18 [ Rx] LORazepam Oral Conc [Ativan Oral Conc] 1 mg PO Q2HR PRN 4 Days #15 mls 04/08/18 [Rx] OXYCODONE Oral CONC [Oxycodone Oral Conc] 5 mg PO Q2H PRN 4 Days #15 ml [Rx] Scopolamine Patch [Transderm-Scop] 1.5 mg TD Q72H #5 patch.td72 04/09/18 [Rx] 3 Allergy/AdvReac Type Severity Reaction Status Date / Time cephalexin Allergy Hives Verified 04/07/18 20:14 ROS unobtainable: due to mental status - Constitutional Vitals: Temp Pulse BP Pulse Ox 99.5 F 107 116/73 88 04/12/18 00:08 04/12/18 00:08 04/12/18 00:08 04/12/18 00:08 Exam: unresponsive to pain and verbal stimuli - Head Head exam: Present: atraumatic, normal inspection - Eye Eye exam: Present: PERRL (2 - 3 mm/reactive). Absent: scleral icterus - ENT ENT exam: Present: mucous membranes dry - Neck Neck exam general surgery: Present: supple. Absent: tenderness, nuchal rigidity , thyromegaly - Respiratory Respiratory exam: Present: rhonchi. Absent: chest wall tenderness, rales, wheezes - Cardiovascular Cardiovascular exam: Present: distant heart sounds, RRR, +S1, +S2 - GI/Abdominal GI/Abdominal exam: Present: soft. Absent: rebound, tenderness - Extremities Exam Extremities exam: Present: cyanotic (feet, R>L), mottling. Absent: joint swelling - Neurological Exam Additional comments: unresponsive - Skin Skin exam: Present: dry, mottled (lower extremities), warm - VTE Reasons for not Prescribing Prophylaxis: Medical contraindication - Assessment and plan (1) Pancreatic cancer Current Visit: Yes Status: Acute Assessment and plan: 1. Patient is terminal and end of life measures only to be provided. 2. Long discussion with patient's and old record reviewed. 3. Will provide IV Opiates and Benzodiazepenes as needed for pain and suffering. 4. Atropine SL PRN secretions. 5. No labs to be drawn. 6. Consult Palliative care for assistance. 7. Comfort care and supportive measures only. Qualifiers: Pancreatic malignancy location: unspecified Qualified Code(s): C25.9 - Malignant neoplasm of pancreas, unspecified (2) DVT prophylaxis Current Visit: Yes Status: Acute Assessment and plan: 1. Not appropriate. Patient is actively passing.
--- NOTE | 2018-04-12 04:29 | Event Note ---
Date of Encounter: 04/12/18 Time of Encounter: 04:28 I was notified by nursing staff that patient at 3:19 am with at bedside. Time of 03:19 am 04/12/18 Cause of : Terminal Pancreatic Cancer
== END 2018-04-12 03:19 | disposition expired ==
LOC: 2ANU
PROVIDERS: ADMIT Internal Medicine; ATTEND Internal Medicine